=== PATIENT | male | born 1990 | race African-American/Black ===

== ENCOUNTER 2021-03-24 21:00 | Emergency (ER) | payer SELFPAY ==
[2021-03-24] MEDS ORDERED: Fluorescein Opthalmic Strip ONE (21:19)
[2021-03-24] MEDS ORDERED: Tetracaine 0.5% PF 4 ML BOT ONE (21:20)
[2021-03-24] MEDS ORDERED: Ibuprofen 200 MG TAB ONE (22:33)
== END 2021-03-24 22:37 | disposition home or self-care (01) ==
LOC: CSHERS 21:00
DX: J06.9 Acute upper respiratory infection, unspecified (principal)
CPT/HCPCS: 99283